=== PATIENT | female | born 1940 | race Caucasian/White ===

== ENCOUNTER 2018-03-25 08:26 | Day surgery (SDC) | payer MEDICARE ==
[~2018-03-25] VITALS: Ht 172.7 cm; Wt 95.3 kg
[~2018-03-25 08:26] MED LIST: CALCI23 PO; LEVOTHYROXIN75 MCG PO; MULTI VIT PO; OMEPRAZOLE20 M1 PO; VITAMI16 PO; VITAMIN D2 PO
[2018-03-25 13:47] VITALS: BP 134/61
== END 2018-03-25 13:40 | disposition home or self-care (01) ==
LOC: ENDO 08:26 → ORM 12:00 → ENDO 12:00
PROVIDERS: ATTEND Internal Medicine Gastroenterology
PROC: 0DB78ZX Excision of Stomach, Pylorus, Via Natural or Artificial Opening Endoscopic, Diagnostic (ICD-10-PCS; principal; 2018-03-25)
PROC: 0D758ZZ Dilation of Esophagus, Via Natural or Artificial Opening Endoscopic (ICD-10-PCS; 2018-03-25)
DX: K22.2 Esophageal obstruction (principal); K29.50 Unspecified chronic gastritis without bleeding; K21.9 Gastro-esophageal reflux disease without esophagitis; F45.8 Other somatoform disorders; Z79.899 Other long term (current) drug therapy

== ENCOUNTER 2020-08-22 08:37 | Emergency (ER) | payer MEDICARE ==
[2020-08-22] MEDS ORDERED: LEVOTHYROXIN88 MC1 PO (08:58)
[2020-08-22] MEDS ORDERED: ULTRAM50 MG PO (09:51)
[2020-08-22 10:31] VITALS: BP 140/82
== END 2020-08-22 10:28 | disposition home or self-care (01) ==
LOC: ED 08:37
PROC: 2W3CX1Z Immobilization of Right Lower Arm using Splint (ICD-10-PCS; principal; 2020-08-22)
DX: S63.501A Unspecified sprain of right wrist, initial encounter (principal); S80.811A Abrasion, right lower leg, initial encounter; W10.9XXA Fall (on) (from) unspecified stairs and steps, initial encounter; Y92.009 Unspecified place in unspecified non-institutional (private) residence as the place of occurrence of the external cause

== ENCOUNTER 2022-03-30 07:05 | Day surgery (SDC) | payer MEDICARE ==
[~2022-03-30] VITALS: Ht 167.6 cm; Wt 87.5 kg
[~2022-03-30 07:05] MED LIST changes: +LASIX20 MG PO; +LEVOTHYROXIN88 MC1 PO; +ULTRAM50 MG PO
[2022-03-30 08:57] VITALS: BP 128/75
== END 2022-03-30 09:09 | disposition home or self-care (01) ==
LOC: ORM 07:05
PROVIDERS: ATTEND Internal Medicine Gastroenterology
PROC: 0DB48ZX Excision of Esophagogastric Junction, Via Natural or Artificial Opening Endoscopic, Diagnostic (ICD-10-PCS; principal; 2022-03-30)
PROC: 0DB78ZX Excision of Stomach, Pylorus, Via Natural or Artificial Opening Endoscopic, Diagnostic (ICD-10-PCS; 2022-03-30)
PROC: 0DB28ZX Excision of Middle Esophagus, Via Natural or Artificial Opening Endoscopic, Diagnostic (ICD-10-PCS; 2022-03-30)
DX: K44.9 Diaphragmatic hernia without obstruction or gangrene (principal); K29.70 Gastritis, unspecified, without bleeding; K22.89 Other specified disease of esophagus; K21.9 Gastro-esophageal reflux disease without esophagitis; Z80.0 Family history of malignant neoplasm of digestive organs

== ENCOUNTER 2022-10-24 10:44 | Emergency (ER) | payer MEDICARE ==
[~2022-10-24] VITALS: Ht 172.7 cm; Wt 92.0 kg
[2022-10-24] MEDS ORDERED: TOBRAMYCIN0.31 OD (10:54)
[2022-10-24] MEDS ORDERED: CEPHALEXIN250 MG/51 PO (10:54)
[2022-10-24 11:26] VITALS: BP 139/87
[2022-10-24 11:30] VITALS: BP 153/85
[2022-10-24 12:00] VITALS: BP 145/77
[2022-10-24 12:24] VITALS: BP 156/78
== END 2022-10-24 12:41 | disposition home or self-care (01) ==
LOC: ED 10:44
DX: M79.631 Pain in right forearm (principal)